=== PATIENT | female | born 1985 | race Caucasian/White ===

== ENCOUNTER 2018-03-16 21:52 | Emergency (ER) | payer BC ==
--- NOTE | 2018-03-16 22:21 | ED ---
Throat Pain/Nasal Congestion - HPI Summary HPI Summary: Patient complains of productive cough, nasal discharge, sinus pressure over the past couple months with new onset sensation of foreign body in her throat, with pain radiating down into her sternum. Has tried 3 rounds of antibiotics over the winter. Denies fever, JAIN, ear pain, dysphagia, change in appetite or fluid intake, SOB, N/V/D, abdomen pain, change in urinary BM. Medical history is none. Nonsmoker. Denies any estrogen supplements or OCP, history of blood clots, recent trauma or surgery, hemoptysis, unilateral leg pain or swelling, prior dvt or PE. - History of Current Complaint Chief Complaint: EDThroatPain Time Seen by Provider: 03/16/18 22:05 Hx Obtained From: Patient Onset/Duration: Gradual Onset, Lasting Days Severity: Mild Associated Signs And Symptoms: Positive: FB Sensation, Nasal Discharge Cough: Productive - Epiglottits Risk Factors Epiglottis Risk Factors: Negative - Allergies/Home Medications Allergies/Adverse Reactions: Allergies Allergy/AdvReac Type Severity Reaction Status Date / Time No Known Allergies Allergy Verified 03/16/18 21:57 Home Medications: Home Medications NK [No Home Medications Reported] 03/16/18 [History Confirmed 03/16/18] PMH/Surg Hx/FS Hx/Imm Hx Endocrine/Hematology History: Denies: Hx Anticoagulant Therapy Cardiovascular History: Denies: Hx Angina Respiratory History: Denies: Hx Lung Cancer GI History: Denies: Hx Cirrhosis History: Denies: Hx Acute Renal Failure Musculoskeletal History: Denies: Hx Gout Sensory History: Denies: Hx Cataracts EENT History: Denies: Hx Deafness Neurological History: Denies: Hx CVA Infectious Disease History: No Infectious Disease History: Denies: Traveled Outside the [place] in Last 30 Days - Social History Alcohol Use: None Substance Use Type: Reports: None Review of Systems Constitutional: Negative Eyes: Negative Positive: Sore Throat, Nasal Discharge Positive: Chest Pain Positive: Cough Gastrointestinal: Negative Genitourinary: Negative Musculoskeletal: Negative Skin: Negative Neurological: Negative Psychological: Normal All Other Systems Reviewed And Are Negative: Yes Physical Exam Triage Information Reviewed: Yes Vital Signs On Initial Exam: Initial Vitals Temp Pulse Resp BP Pulse Ox 97.8 F 85 16 119/66 97 03/16/18 21:55 03/16/18 21:55 03/16/18 21:55 03/16/18 21:55 03/16/18 21:55 Vital Signs Reviewed: Yes Appearance: Positive: Well-Appearing Skin: Positive: Warm Head/Face: Positive: Normal Head/Face Inspection Eyes: Positive: Normal ENT: Positive: Normal ENT inspection Neck: Positive: Supple Respiratory/Lung Sounds: Positive: Clear to Auscultation Cardiovascular: Positive: Normal Abdomen Description: Positive: Nontender Musculoskeletal: Positive: Normal Neurological: Positive: Normal Psychiatric: Positive: Normal AVPU Assessment: Alert - [place] Coma Scale Best Eye Response: 4 - Spontaneous Best Motor Response: 6 - Obeys Commands Best Verbal Response: 5 - Oriented Coma Scale Total: 15 Diagnostics - Vital Signs Vital Signs Temp Pulse Resp BP Pulse Ox 03/16/18 21:55 97.8 F 85 16 119/66 97 - Laboratory Lab Statement: Any lab studies that have been ordered have been reviewed, and results considered in the medical decision making process. - Radiology cxr Xray Interpretation: No Acute Changes Radiology Interpretation Completed By: ED Physician neck soft tissue Xray Interpretation: No Acute Changes Radiology Interpretation Completed By: ED Physician Re-Evaluation - Re-Evaluation 1 Re-Evaluation Time: 23:21 Change: Unchanged EENT Course/Dx - Course Course Of Treatment: Patient complains of productive cough, nasal discharge, sinus pressure over the past couple months with new onset sensation of foreign body in her throat, with pain radiating down into her sternum. Has tried 3 rounds of antibiotics over the winter. Denies fever, JAIN, ear pain, dysphagia, change in appetite or fluid intake, SOB, N/V/D, abdomen pain, change in urinary BM. Medical history is none. Nonsmoker. Denies any estrogen supplements or OCP, history of blood clots, recent trauma or surgery, hemoptysis, unilateral leg pain or swelling, prior dvt or PE. PERC criteria negative. No unilateral leg swelling or pain on physical exam. Vital signs within normal limits and stable. Imaging of neck and chest negative. Strep negative. Follow-up with GI. - Diagnoses Provider Diagnoses: Pain in throat and chest Discharge - Sign-Out/Discharge Documenting (check all that apply): Discharge/Admit/Transfer - Discharge Plan Condition: Stable Disposition: HOME Patient Education Materials: Pharyngitis (ED) Referrals: Renetta Cronin MD [Primary Care Provider] - Gordy Marquez MD [Medical Doctor] - Additional Instructions: Follow-up with GI Dr. Marquez for further evaluation. Return to the ED for any new or worsening symptoms - Billing Disposition and Condition Condition: STABLE Disposition: Home
[2018-03-16 23:25] VITALS: BP 110/68
--- NOTE | 2018-03-17 07:21 | RAD ---
HISTORY: sensation of FB in throat and esophagus COMPARISONS: None VIEWS: 4: Frontal dual-energy and lateral views of the chest. FINDINGS: CARDIOMEDIASTINAL SILHOUETTE: The cardiomediastinal silhouette is normal. JOSE ANGEL: The jose angel are normal. PLEURA: The costophrenic angles are sharp. No pleural abnormalities are noted. LUNG PARENCHYMA: The lungs are clear. ABDOMEN: The upper abdomen is clear. There is no subphrenic gas. BONES AND SOFT TISSUES: There is a scoliotic curvature of the spine. OTHER: None. IMPRESSION: NO ACTIVE CARDIOPULMONARY DISEASE.
--- NOTE | 2018-03-17 07:23 | RAD ---
HISTORY: Foreign body sensation COMPARISONS: None. VIEWS: 2, frontal and lateral views of the soft tissues of the neck FINDINGS: There is no radiographic foreign body. There is continuous air column from the pharynx or trachea. The epiglottis is normal. The prevertebral soft tissues are normal. No osseous abnormality is noted. Lung apices are clear. IMPRESSION: UNREMARKABLE SOFT TISSUES OF THE NECK. NO RADIOPAQUE FOREIGN BODY.
== END 2018-03-16 23:24 | disposition home or self-care (01) ==
LOC: ED 21:52
DX: R07.0 Pain in throat (principal); R07.9 Chest pain, unspecified; R05 Cough; R06.02 Shortness of breath
CPT/HCPCS: 70360; 71046; 87651; 99282

== ENCOUNTER 2019-08-14 23:36 | Inpatient (IN) | payer BC ==
[2019-08-15 01:37] LABS: ABS Basophils 0.1 10^3/ul (0-0.2); ABS Eosinophils 0.1 10^3/ul (0-0.6); ABS Lymphocytes 1.6 10^3/ul (1.0-4.8); ABS Neutrophils 11.3 10^3/ul (1.5-7.7); Eosinophil % 0.7 %; Hematocrit 35 % (35-47); Lymphocyte % 11.2 %; Mean Corpuscular HGB Conc 35 g/dL (31-36); Mean Corpuscular Hemoglobin 30 pg (27-31); Mean Corpuscular Volume 87 fL (80-97); Mean Platelet Volume 8.3 fL (7.4-10.4); Platelet Count 234 10^3/uL (150-450); Red Blood Count 3.98 10^6 /uL (3.70-4.87); Red Cell Distribution Width 14 % (10-15); White Blood Count 14.1 10^3/uL (3.5-10.8)
[2019-08-15] MEDS ORDERED: Lactated Ringers 1000 ML Bag* 1,000 ML IV ONE ×2 (01:39→03:41)
[2019-08-15] MEDS ORDERED: Buffered Lidocaine 1% SYRIN* 1 ML/SYRINGE INTRADERM ONE (01:39)
[2019-08-15] MEDS ORDERED: Penicillin G Potassium IV* 5,000,000 UNITS in NS 0.9% 100 ML* 100 ML IVPB ONE (02:00)
[2019-08-15] MEDS ORDERED: Lactated Ringers 1000 ML Bag* 1,000 ML IV SCH ×4 (02:00→07:00)
--- NOTE | 2019-08-15 02:07 | HP ---
General Information - Reason for Visit 34yo, IUP@39+6, here for SROM, early labor - General Information Maternal Age: 34 Grav: 3 Para: 2 SAB: 0 IEA: 0 Estimated Due Date: 08/15/19 Determined By: Early Ultrasound Gestational Age in Weeks/Days: 39+6 Maternal Blood Type and Rh: O Positive - Results this Serology/RPR Result: Non-Reactive Rubella Result: Immune HBsAg Result: Negative HIV Result: Negative GBS Culture Result: Positive Past Medical History Delivery History: Hx Uncomplicated Vaginal Delivery Past Medical History Comment: hypercholesterolemia Past Surgical History Comment: appendectomy Family History Comment: Father: d/t MS Mother: lupus, RA Sister: ovarian CA, mets to lungs PGM: , breast cancer PGF: , prostate cancer MGF: d/t heart disease - Antepartal Records Antepartal Records: Reviewed, Complicated by: - GBS positive, parvovirus - normal sono Review of Systems Constitutional: Uncomfortable CV Complaint: No Respiratory: Shortness of Breath: No Gastrointestinal: No Nausea/Vomiting, Normal Bowel Movement Genitourinary: Leaking Fluid, No Dysuria, No Bleeding Musculoskeletal: Contractions Neurological: No Headache, No Visual Changes Movement: Normal Exam Allergies/Adverse Reactions: Allergies No Known Allergies Allergy (Verified 03/16/18 21:57) temp 98.9, HR 79, RR 18, BP 134/76, O2 98% Lab Values - Entire Visit: Laboratory Tests 08/15/19 08/15/19 08/15/19 00:17 01:15 01:15 WBC 14.1 H RBC 3.98 Hgb 12.0 Hct 35 MCV 87 MCH 30 MCHC 35 RDW 14 Plt Count 234 MPV 8.3 Neut % (Auto) 80.3 Lymph % (Auto) 11.2 [place] % (Auto) 7.2 Eos % (Auto) 0.7 Baso % (Auto) 0.6 Absolute Neuts (auto) 11.3 H Absolute Lymphs (auto) 1.6 Absolute Monos (auto) 1.0 H Absolute Eos (auto) 0.1 Absolute Basos (auto) 0.1 Absolute Nucleated RBC 0.0 Nucleated RBC % 0.0 Vag Amniotic Fld Detect Positive Blood Type O Positive - Measurements Height: 5 ft 2.25 in Weight: 174 lb Weight in lbs: 174.182156 Body Mass Index (BMI): 31.6 Pre- Weight: 140 lb Weight Gained This : 34 lbs and 0 ozs - Exam Breast: Breast Exam Deferred CVA: No CVA Tenderness Extremities: No Edema Heart: Normal Rhythm/Heart Sounds HEENT: No Significant Findings Lungs: Clear Bilaterally Rectal: Rectal Exam Deferred - Abdominal Exam Abdomen Exam: Non-Tender, Fundal Height Consistent with Dates - Ultrasound/Biophysical Profile Ultrasound Status: Bedside Exam Ultrasound Findings: Bedside exam to confirm vertex Targeted Exam Findings Estimated Weight: 7.5lbs Cervical Exam: 2cm Effacement: 50% Station: High Presenting Part: Vertex Membrane Status: SROM Amniotic Fluid Evaluation: Positive ROM Plus Bleeding/Discharge: None EFM Findings - External Monitor Findings Baseline Heart Rate: 155 External Monitor Findings: Variability Moderate, Variability Minimal, Variable or Late Deceleration Pattern Present Contractions: Regular, 45-90 Seconds - q4 Assessment/Plan - Assessment 34yo, IUP@39+6, here for SROM and early labor GBS+, O+, RI complicated by Parvo - normal sonos VE unchanged from office Vtx confirmed by limited bedside sono given high station SROM confirmed, clear fluid Category 2 FHR tracing. No evidence of metabolic acidemia. Contractions q3-4 mins - Obstetrical Risk Factors Obstetrical Risk Factors: GBS Positive - Plan Plan: Admit - Anticipate Vaginal Delivery Plan Comment: Admit to L&D Monitor category 2 tracing: position change, fluid bolus Start GBS prophylaxis Anticipate progression to active labor - Date/Time of Admission Date of Admission: 08/15/19 Time of Admission: 02:00
[2019-08-15] MEDS ORDERED: OBEPIDURAL* 250 ML EPIDURAL ONE (02:34)
--- NOTE | 2019-08-15 02:34 | PN ---
Progress Note - Progress Note Date of Service: 08/15/19 Note: Requesting epidural VE deferred d/t SROM Anesthesia notified
[2019-08-15] MEDS ORDERED: Lidocaine 2% w/ EPI 1:200,000* 20 ML SDV VIAL ONE ×2 (03:24→05:12)
[2019-08-15] MEDS ORDERED: Phenylephrine 40 MCG/ML SYRINGE IV PUSH PRN ×2 (03:41)
[2019-08-15] MEDS ORDERED: Famotidine TAB* 20 MG PO PRN (03:41)
[2019-08-15] MEDS ORDERED: Lactated Ringers 1000 ML Bag* 500 ML IV PRN ×2 (03:41)
[2019-08-15] MEDS ORDERED: Sodium Citrate/Citric Acid* 15 ML UDC PO PRN (03:41)
[2019-08-15] MEDS ORDERED: Acetaminophen TAB* 325 MG PO PRN (03:42)
[2019-08-15] MEDS ORDERED: Acetaminophen TAB* 325 MG ONE (03:46)
--- NOTE | 2019-08-15 03:55 | PN ---
Progress Note - Progress Note Date of Service: 08/15/19 Note: Called to bedside by RN for FHR >170 Oxygen applied, fluids infusing Epidural in place, anesthesia at bedside, pt comfortable, considerable shaking VE: 4/100/-2, baby now well applied to the cervix, SROM 1050 - clear fluid Contractions every 1.5-2 mins Temp 100.4, 1 dose of PCN for GBS prophylaxis infused Consult with MD CHANG. En route to hospital. Plan for Tylenol, 975mg, now Hold terbutaline given tachycardia Close monitoring of pt and fetus
[2019-08-15] MEDS ORDERED: OBEPIDURAL* 250 ML EPIDURAL SCH (04:00)
[2019-08-15] MEDS ORDERED: Clindamycin 900 MG/D5W BAG(*) 900 MG/50 ML BAG IVPB ONE ×2 (04:09→04:30)
--- NOTE | 2019-08-15 04:09 | PN ---
Progress Note - Progress Note Date of Service: 08/15/19 Note: Temp now 104.5 Notified MD CHANG Plan to start Gentamicin and clindamycin now Blood cultures, repeat CBC, lactic acid now Continue to monitor closely
[2019-08-15] MEDS ORDERED: Terbutaline INJ* 1 MG/ML VIAL ONE (04:18)
[2019-08-15] MEDS ORDERED: Phenylephrine 40 MCG/ML SYRINGE ONE (04:26)
[2019-08-15] MEDS ORDERED: OXYTOCIN* 10 UNITS/ML 1 ML VIAL ONE (04:26)
[2019-08-15] MEDS ORDERED: Morphine PF AMP (0.5MG/ML)* 5 MG/10 ML AMP ONE (04:26)
[2019-08-15] MEDS ORDERED: Propofol* 10 MG/ML 20 ML BTL ONE (04:28)
[2019-08-15] MEDS ORDERED: Succinylcholine* 20 MG/ML 10 ML VIAL ONE (04:28)
[2019-08-15] MEDS ORDERED: Lidocaine 2% PF * 5 ML VIAL ONE (04:28)
[2019-08-15] MEDS ORDERED: NS 0.9% IVPB ONE (04:30)
[2019-08-15] MEDS ORDERED: Ampicillin ADVAN(*) 2 GM in NS 0.9% 100 ML* 100 ML IVPB ONE (04:30)
[2019-08-15] MEDS ORDERED: GENTAMICIN ADULT IVPB ONE (04:30)
[2019-08-15] MEDS ORDERED: Midazolam* 1 MG/ML 5 ML VIAL (5 MG) ONE (04:33)
[2019-08-15] MEDS ORDERED: fentaNYL* 50 MCG/ML 5 ML VIAL (250 MCG VIAL) ONE (04:34)
[2019-08-15 04:38] LABS: ABS Basophils 0.1 10^3/ul (0-0.2); ABS Lymphocytes 0.9 10^3/ul (1.0-4.8); ABS Monocytes 0.4 10^3/ul (0-0.8); Eosinophil % 0.2 %; Hematocrit 35 % (35-47); Hemoglobin 12.2 g/dL (12.0-16.0); Lymphocyte % 6.7 %; Mean Corpuscular HGB Conc 35 g/dL (31-36); Mean Corpuscular Hemoglobin 30 pg (27-31); Mean Corpuscular Volume 88 fL (80-97); Mean Platelet Volume 8.4 fL (7.4-10.4); Platelet Count 227 10^3/uL (150-450); Red Blood Count 4.04 10^6 /uL (3.70-4.87); Red Cell Distribution Width 14 % (10-15); White Blood Count 13.4 10^3/uL (3.5-10.8)
[2019-08-15] MEDS ORDERED: fentaNYL* 50 MCG/ML 2 ML VIAL (100 MCG VIAL) ONE (05:13)
[2019-08-15] MEDS ORDERED: Scopolamine 1.5 mg* PATCH ONE (05:25)
[2019-08-15] MEDS ORDERED: Ketorolac INJ* 30 MG/ML 1 ML VIAL ONE (05:25)
[2019-08-15] MEDS ORDERED: Ondansetron INJ* 2 MG/ML VIAL ONE (05:25)
[2019-08-15] MEDS ORDERED: Naloxone* 0.4 MG/ML 1 ML VIAL IV PRN ×2 (05:55→05:56)
[2019-08-15] MEDS ORDERED: Ondansetron INJ* 2 MG/ML VIAL IV PRN ×2 (05:55→05:56)
[2019-08-15] MEDS ORDERED: fentaNYL* 50 MCG/ML 2 ML VIAL (100 MCG VIAL) IV PRN (05:55)
[2019-08-15] MEDS ORDERED: Nalbuphine* 10 MG/ML 1 ML VIAL IV PRN (05:56)
[2019-08-15] MEDS ORDERED: oxyCODONE/Acetamin 5/325 MG* TAB PO PRN ×4 (05:56→21:00)
[2019-08-15] MEDS ORDERED: diPHENhydraMINE IV* 50 MG/ML 1 ml VIAL (BENADRYL) IV PRN (05:56)
[2019-08-15] MEDS ORDERED: Witch Hazel PAD* JAR TOPICAL PRN (06:08)
--- NOTE | 2019-08-15 06:15 | PN ---
Progress Note - Progress Note Date of Service: 08/15/19 Note: Waqas Gomez MD in house and at bedside O2 applied via facemask, IV fluids infusing, pt in lateral position Pt BP stable, temp 104, HR 120 Stable baseline, though tachycardia noted (170s-180s) with variable decelerations. This pattern then abruptly changed to an indeterminate baseline. VE: 7/100/-1 Given IAI and category III tracing - decision made for emergency Anesthesia in house, neonatology notified
[2019-08-15] MEDS ORDERED: Penicillin G Potassium IV* 2,500,000 UNITS in NS 0.9% 100 ML* 100 ML IVPB SCH (06:30)
[2019-08-15] MEDS ORDERED: Oxytocin in LR* 20 UNITS/1,000 ML BAG IVPB ONE (07:21)
[2019-08-15] MEDS ORDERED: Oxytocin in LR* 20 UNITS/1,000 ML BAG IVPB SCH (08:00)
[2019-08-15] MEDS: Simethicone TAB* 80 MG TAB.CHEW PO SCH ×4 (09:23→20:00)
[2019-08-15] MEDS: Docusate CAP* 100 MG PO SCH ×3 (09:23→20:00)
--- NOTE | 2019-08-15 09:59 | OP ---
DATE OF OPERATION: 08/15/19 - ROOM #118 DATE OF : 85 SURGEON: Rocky Gomez MD PREPLEATER: STEPHANIE Steele ANESTHESIOLOGIST: Dr. Vazquez. ANESTHESIA: General and epidural. PRE-OP DIAGNOSES: A 40 weeks gestation with category 3 heart tracing and chorioamnionitis. POST-OP DIAGNOSES: A 40 weeks gestation with category 3 heart tracing and chorioamnionitis. OPERATIVE PROCEDURE: Stat primary section. ESTIMATED BLOOD LOSS: 800 cc. URINE OUTPUT: 100 cc. IV FLUIDS: 3600 cc lactated Ringer's. MATERIALS TO LAB: Cord blood and cord gases. 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 The patient presented at about midnight and by about 2:30 , she was receiving an epidural. Shortly after that the patient was noted to start having more frequent contractions and the heart tracing trended up into the 180s. Maternal temperature was 100.4. I was contacted at that time and came into the hospital. The patient's temperature increased to 104 and IV antibiotics were started. The patient had also already been given Tylenol. The heart racing was noted to still have a baseline in the 150 to 180s, but this was difficult to even determine as the variable decelerations became frequent with every contraction and variability became minimal. The patient's cervix had progressed to 7 cm dilatation, but considering the rapid decline in the heart racing, the decision was made to proceed with a stat section. She was counseled quickly and consent was signed. FINDINGS: Normal-appearing uterus, fallopian tubes, ovaries, and placenta. Delivery was productive of a female weighing 7 pounds 14 ounces of Apgars of 2 and 8. Time of delivery was 0448. Of note, the amniotic fluid appeared fairly clear and was non-malodorous. COMPLICATIONS: None. DESCRIPTION OF PROCEDURE: The risks, benefits, and alternatives were described to the patient and informed consent was obtained. The patient was taken to the operating room with IV running where the patient was prepped and draped in the normal sterile fashion in the dorsal supine position with leftward tilt. Once she was fully draped, general anesthesia was induced and the incision was made. A Pfannenstiel skin incision was made with a scalpel and this was carried down to the fascia sharply. The fascia was scored in the midline and the fascial incision was extended using Rodrigues scissors. The rectus fascia was lifted up bluntly. The rectus muscles were in the midline bluntly and the peritoneum was entered bluntly. A Jamil retractor and bladder blade were placed for visualization. A scalpel was used to score lower uterine segment carefully and this was carried down to the amniotic cavity, which was productive of clear fluid. The uterine incision was extended using blunt traction. The head was low and elevated to the level of incision and with fundal pressure delivered without difficulty. The infant did have poor tone at that time. The cord was doubly clamped and cut and the was handed off to the awaiting special care nurse as the gas system operator was en route. Cord blood and cord gases were collected. The placenta was delivered spontaneously. The uterus was then exteriorized and cleared of all clots and debris. The fundus was firm, but the lower uterine segment had fairly poor tone initially. The uterine incision was reapproximated using 0 Vicryl in a running locked fashion. A second imbricating layer of 0 Vicryl was then also placed with good hemostasis present. The posterior cul-de-sac was copiously irrigated with saline. The uterus was then returned to the abdomen and the incision was re-inspected and still noted to be hemostatic. The peritoneum was then closed with 3-0 Vicryl in a running fashion. The fascia was closed with 0 Vicryl in a running fashion. The subcutaneous tissues were copiously irrigated and then dried with laparotomy sponges. There was excellent hemostasis present. The skin was then closed with 4- 0 Monocryl in a subcuticular stitch. Mastisol and Steri-Strips were then placed over the incision. The patient tolerated the procedure well. Sponge, lap, and needle counts were correct x2. [id number]/[facility] #: [id number] [facility]
[2019-08-15] MEDS ORDERED: Gentamicin ADULT per pharmacy 1 NOTE MISC FOLLOW UP PRN (11:04)
[2019-08-15] MEDS: Ampicillin ADVAN(*) 2 GM in NS 0.9% 100 ML* 100 ML IVPB SCH ×2 (11:21→17:14)
[2019-08-15] MEDS: Clindamycin 900 MG/D5W BAG(*) 900 MG/50 ML BAG IVPB SCH ×2 (12:11→20:02)
[2019-08-15 13:02] LABS: EGFR African American 156.4 (>60); EGFR Non-African American 129.2 (>60)
[2019-08-15] MEDS: Gentamicin ADULT (*) 80 MG in NS 0.9% 100 ML* 100 ML IVPB SCH ×2 (13:09→20:36)
[2019-08-15] MEDS: Ketorolac INJ* 30 MG/ML 1 ML VIAL IV PRN ×2 (13:57→19:57)
[2019-08-15 14:24] LABS: Urine Benzodiazepine Screen Presumptive Positive (None Detect); Urine Opiates Screen Presumptive Positive (None Detect)
[2019-08-16] MEDS: Ampicillin ADVAN(*) 2 GM in NS 0.9% 100 ML* 100 ML IVPB SCH ×5 (00:43→23:35)
[2019-08-16] MEDS: Ketorolac INJ* 30 MG/ML 1 ML VIAL IV PRN (02:18)
[2019-08-16] MEDS: Clindamycin 900 MG/D5W BAG(*) 900 MG/50 ML BAG IVPB SCH ×3 (04:05→20:23)
[2019-08-16] MEDS: Gentamicin ADULT (*) 80 MG in NS 0.9% 100 ML* 100 ML IVPB SCH ×3 (04:36→21:06)
[2019-08-16 08:01] LABS: ABS Eosinophils 0.1 10^3/ul (0-0.6); ABS Lymphocytes 1.2 10^3/ul (1.0-4.8); ABS Neutrophils 13.2 10^3/ul (1.5-7.7); Eosinophil % 0.6 %; Hematocrit 26 % (35-47); Hemoglobin 9.2 g/dL (12.0-16.0); Lymphocyte % 7.8 %; Mean Corpuscular HGB Conc 35 g/dL (31-36); Mean Corpuscular Hemoglobin 30 pg (27-31); Mean Corpuscular Volume 87 fL (80-97); Platelet Count 174 10^3/uL (150-450); Red Blood Count 3.02 10^6 /uL (3.70-4.87); Red Cell Distribution Width 14 % (10-15); White Blood Count 15.5 10^3/uL (3.5-10.8)
[2019-08-16] MEDS: Simethicone TAB* 80 MG TAB.CHEW PO SCH ×4 (08:20→20:22)
[2019-08-16] MEDS: Docusate CAP* 100 MG PO SCH ×3 (08:20→20:23)
[2019-08-16] MEDS: Ibuprofen TAB* 600 MG PO SCH ×3 (08:20→20:23)
[2019-08-16] MEDS: Ferrous Gluconate TAB* 324 MG TAB PO SCH ×2 (10:01→20:23)
[2019-08-16 13:30] LABS: EGFR African American 146.9 (>60); EGFR Non-African American 121.4 (>60)
[2019-08-16] MEDS ORDERED: NS 0.9% 100 ML* 100 ML ONE (20:35)
[2019-08-16] MEDS: Acetaminophen TAB* 325 MG PO PRN (21:58)
[2019-08-17] MEDS: Ibuprofen TAB* 600 MG PO SCH ×3 (04:01→17:12)
[2019-08-17] MEDS: Clindamycin 900 MG/D5W BAG(*) 900 MG/50 ML BAG IVPB SCH (04:01)
[2019-08-17] MEDS: Gentamicin ADULT (*) 80 MG in NS 0.9% 100 ML* 100 ML IVPB SCH (04:58)
[2019-08-17] MEDS: Ampicillin ADVAN(*) 2 GM in NS 0.9% 100 ML* 100 ML IVPB SCH (05:39)
[2019-08-17] MEDS: Ferrous Gluconate TAB* 324 MG TAB PO SCH ×2 (07:47→21:30)
[2019-08-17] MEDS: Acetaminophen TAB* 325 MG PO PRN ×2 (07:47→13:59)
[2019-08-17] MEDS: Docusate CAP* 100 MG PO SCH ×3 (07:47→21:30)
--- NOTE | 2019-08-17 10:30 | PN ---
Progress Note - Progress Note Date of Service: 08/17/19 Note: S: 34 y/o POD#2 s/p pLTCS in the context of Category III and Chorioamnionitis; suspected maternal sepsis. Doing well today. Has been receiving triples, now 24 hours afebrile. Pt reports feeling well after getting a good night of rest. Pain is well controlled. Tolerating regular diet without N /V. Voiding spontaneously, passing flatus, ambulating. O: AVSS Gen: nad, aaox3 CV: RRR Pulm: non-labored respirations Abd: softly distended, nttp, fundus firm and below the U Incision: c/d/i with sutures and steris, no erythema, no induration, no drainage or bleeding Ext: warm, nttp A/P: 34 y/o POD#2 s/p pLTCS in the context of Category III and Chorioamnionitis; suspected maternal sepsis - AVSS, afebrile x 24 hours now - Chorioamnionitis/maternal sepsi - will DC antibiotics now, has been on Amp, Clinda, Gent. Will remove IV after next set of vitals. Abdomen NTTP. - Pain well controlled, continue routine regimen - Incision healing well, routine wound care - Voiding spontaneously - Passing flatus - RH+/RI - Continue routine post /operative care DO JULIANNE Maurer
[2019-08-17] MEDS: Simethicone TAB* 80 MG TAB.CHEW PO SCH ×3 (11:02→21:30)
[2019-08-18] MEDS: Ibuprofen TAB* 600 MG PO SCH ×2 (02:08→09:37)
[2019-08-18] MEDS: Acetaminophen TAB* 325 MG PO PRN ×2 (02:08→09:36)
[2019-08-18] MEDS ORDERED: Scopolamine PATCH Remove* 1 NOTE MISC PATCH OFF PRN (05:59)
[2019-08-18 07:42] VITALS: BP 119/69
[2019-08-18] MEDS: Docusate CAP* 100 MG PO SCH (09:37)
[2019-08-18] MEDS: Ferrous Gluconate TAB* 324 MG TAB PO SCH (09:37)
[2019-08-18] MEDS: Simethicone TAB* 80 MG TAB.CHEW PO SCH (09:38)
== END 2019-08-18 10:57 | disposition home or self-care (01) | DRG 540 ==
LOC: MCHOBOUT 23:36 → MCHOB 08-15 01:55
PROVIDERS: ADMIT Advanced Practice Midwife; ATTEND Obstetrics & Gynecology
PROC: 10D00Z1 Extraction of Products of Conception, Low, Open Approach (ICD-10-PCS; principal; 2019-08-15 04:33)
DX: O99.824 Streptococcus B carrier state complicating childbirth (principal); O75.2 Pyrexia during labor, not elsewhere classified; O76 Abnormality in fetal heart rate and rhythm complicating labor and delivery; O41.1290 Chorioamnionitis, unspecified trimester, not applicable or unspecified; O90.81 Anemia of the puerperium; D64.9 Anemia, unspecified; Z3A.40 40 weeks gestation of pregnancy; Z37.0 Single live birth
CPT/HCPCS: 36415; 80170; 80307; 82565; 83605; 84112; 84520; 85025; 86850; 86900; 86901; 87040; A9270-GY; J0330; J1580; J1885; J2250; J2405; J2540; J2590; J2704; J3010; J3105